=== PATIENT | female | born 1990 | race Caucasian/White ===

== ENCOUNTER 2016-08-18 05:10 | Day surgery (SDC) | payer BC ==
[~2016-08-18] VITALS: Ht 177.8 cm; Wt 73.0 kg
[~2016-08-18 05:10] MED LIST: KLONOPIN0.5 M1 PO
[2016-08-18] MEDS ORDERED: LEVONO-E ESTRA1 EACH PO (05:50)
[2016-08-18 05:54] VITALS: BP 119/70
[2016-08-18 09:14] VITALS: BP 103/60
[2016-08-18 09:36] VITALS: BP 116/72
== END 2016-08-18 09:49 | disposition home or self-care (01) ==
LOC: SDC 05:10
DX: D06.9 Carcinoma in situ of cervix, unspecified (principal); Z80.0 Family history of malignant neoplasm of digestive organs; Z88.0 Allergy status to penicillin
CPT/HCPCS: 88305; 88307; J0131; J1100; J1170; J1885; J2250; J2405; J2765; J3010